=== PATIENT | male | born 1980 | race African-American/Black ===

== ENCOUNTER 2019-02-15 09:51 | Emergency (ER) | payer MEDICAID ==
[~2019-02-15] VITALS: Ht 182.9 cm; Wt 73.9 kg
[2019-02-15 09:59] VITALS: Ht 182.9 cm; Wt 73.9 kg
[2019-02-15 10:43] VITALS: BP 144/92
== END 2019-02-15 10:43 | disposition home or self-care (01) ==
LOC: ED 09:51
DX: G56.02 Carpal tunnel syndrome, left upper limb (principal); J45.909 Unspecified asthma, uncomplicated

== ENCOUNTER 2020-05-10 17:04 | Emergency (ER) | payer OTHER, MEDICAID ==
[~2020-05-10] VITALS: Ht 182.9 cm; Wt 86.2 kg
[2020-05-10 17:22] VITALS: Ht 182.9 cm; Wt 86.2 kg
[2020-05-10 18:38] VITALS: BP 133/81
== END 2020-05-10 18:38 | disposition home or self-care (01) ==
LOC: ED 17:04
DX: S16.1XXA Strain of muscle, fascia and tendon at neck level, initial encounter (principal); S00.81XA Abrasion of other part of head, initial encounter; M25.512 Pain in left shoulder; J45.909 Unspecified asthma, uncomplicated; R03.0 Elevated blood-pressure reading, without diagnosis of hypertension; V49.49XA Driver injured in collision with other motor vehicles in traffic accident, initial encounter; Y93.I9 Activity, other involving external motion; Y92.488 Other paved roadways as the place of occurrence of the external cause; Y99.8 Other external cause status
CPT/HCPCS: J1885

== ENCOUNTER 2020-07-02 02:35 | Emergency (ER) | payer OTHER ==
[~2020-07-02] VITALS: Ht 182.9 cm; Wt 79.4 kg
[2020-07-02 02:36] VITALS: BP 127/79; Ht 182.9 cm; Wt 79.4 kg
== END 2020-07-02 02:59 | disposition other institution (70) ==
LOC: ED 02:35
DX: Z02.89 Encounter for other administrative examinations (principal)